=== PATIENT | female | born 1995 | race Caucasian/White ===

== ENCOUNTER 2020-04-15 13:20 | Emergency (ER) | payer MEDICAID ==
[~2020-04-15] VITALS: Ht 162.6 cm; Wt 65.0 kg
[2020-04-15] MEDS ORDERED: KETOROLAC 60MG/2ML VIAL IM ONE (14:45)
[2020-04-15 15:21] VITALS: BP 111/65
[2020-04-15 15:27] LABS: CLARITY URINE CLEAR (CLEAR); COLOR URINE YELLOW (YELLOW); KETONES URINE NEGATIVE (NEGATIVE); LEUKOCYTE ESTERASE URINE 1+ (NEGATIVE); NITRITE URINE NEGATIVE (NEGATIVE); OCCULT BLOOD URINE 3+ (NEGATIVE); PROTEIN URINE NEGATIVE (NEGATIVE); SPECIFIC GRAVITY URINE 1.026 (1.005-1.030)
== END 2020-04-15 16:25 | disposition home or self-care (01) ==
LOC: ER 13:20
DX: M54.16 Radiculopathy, lumbar region (principal); N10 Acute pyelonephritis; N30.00 Acute cystitis without hematuria; Z98.890 Other specified postprocedural states
CPT/HCPCS: 73502; 81003; 81025; 96372; 99284; J1885